=== PATIENT | female | born 1990 | race Caucasian/White ===

== ENCOUNTER 2016-11-02 16:01 | Emergency (ER) | payer OTHER ==
[2016-11-02 18:40] LABS: BASOPHIL % 0.6 % (0-2); PLATELET COUNT 235 x10^3mcL (130-400); RED CELL DISTRIBUTION WIDTH 14.1 % (11.5-14.5)
[2016-11-02 18:48] LABS: CALCIUM 9.3 mg/dL (8.5-10.1); CARBON DIOXIDE 31.4 mmol/L (21-32); CHLORIDE SERUM 102 mmol/L (98-107); CREATININE SERUM 0.7 mg/dL (0.6-1.0); GFR1 > 60 mL/min; GLUCOSE SERUM 111 mg/dL (74-106); POTASSIUM SERUM 3.5 mmol/L (3.5-5.1); SODIUM SERUM 139 mmol/L (136-145)
[2016-11-02 18:52] LABS: ALBUMIN 3.8 g/dL (3.4-5.0); ALKALINE PHOSPHATASE 93 U/L (46-116); ALT/SGPT 30 U/L (14-59); AMYLASE 64 U/L (25-115); AST/SGOT 39 U/L (15-37); BILIRUBIN TOTAL 0.27 mg/dL (0.20-1.00); LIPASE 104 IU/L (73-393); TOTAL PROTEIN, SERUM 8.1 g/dL (6.4-8.2)
[2016-11-02 20:40] VITALS: BP 121/87
== END 2016-11-02 20:40 | disposition home or self-care (01) ==
LOC: ED 16:01
PROVIDERS: Emergency Medicine
DX: R10.13 Epigastric pain (principal); R11.2 Nausea with vomiting, unspecified; K21.9 Gastro-esophageal reflux disease without esophagitis; D72.829 Elevated white blood cell count, unspecified; Z90.49 Acquired absence of other specified parts of digestive tract
CPT/HCPCS: 36415; 83880; Q0162